=== PATIENT | female | born 1985 | race Caucasian/White ===

== ENCOUNTER 2018-04-08 08:07 | Emergency (ER) | payer SELFPAY ==
[2018-04-08] MEDS ORDERED: NA CHLORIDE 0.9% 1,000 ML ONE (09:20)
[2018-04-08] MEDS ORDERED: KETOROLAC 30 MG/ML INJ ONE (09:20)
[2018-04-08] MEDS ORDERED: DEXAMETHASONE 10 MG/ML VIAL ONE (09:43)
--- NOTE | 2018-04-08 09:49 | EDPHYS ---
Physician Documentation [facility] Name: Trinh Garcia Age: 32 yrs Sex: Female : 1985 Arrival Date: 04/08/2018 Time: 08:11 Bed 19 Private MD: None, None ED Physician Daniel Martinez HPI: 04/08 08:49 This 32 yrs old Female presents to ER via Ambulatory with complaints of Flu jr8 Symptoms. 08:49 Patient with 3 day history of flu like symptoms. Not getting better . Onset: The jr8 symptoms/episode began/occurred acutely, 3 day(s) ago. Severity of symptoms: At their worst the symptoms were moderate in the emergency department the symptoms are unchanged. The patient has not experienced similar symptoms in the past. The patient has not recently seen a physician. 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 - Social history:: Smoking status: Patient uses tobacco products, smokes one-half pack cigarettes per day. - Ebola Screening: : Patient negative for fever greater than or equal to 101.5 degrees Fahrenheit, and additional compatible Ebola Virus Disease symptoms Patient denies exposure to infectious person Patient denies travel to an Ebola-affected area in the 21 days before illness onset No symptoms or risks identified at this time. ROS: 08:49 Eyes: Negative for injury, pain, redness, and discharge, Neck: Negative for injury, jr8 pain, and swelling, Cardiovascular: Negative for chest pain, palpitations, and edema, Abdomen/GI: Negative for abdominal pain, nausea, vomiting, diarrhea, and constipation, Back: Negative for injury and pain, MS/Extremity: Negative for injury and deformity, Skin: Negative for injury, rash, and discoloration. 08:49 Constitutional: Positive for body aches, chills, fever, malaise. 08:49 ENT: Positive for rhinorrhea, sinus congestion, sinus pain, sore throat. 08:49 Respiratory: Positive for cough, Negative for dyspnea on exertion, shortness of breath, sputum production, wheezing. 08:49 Neuro: Positive for headache, Negative for altered mental status, dizziness, gait disturbance, hearing loss, loss of consciousness, numbness, seizure activity, speech changes, syncope, near syncope, tingling, tinnitus, tremor, visual changes, weakness. Exam: 08:49 Eyes: Pupils equal round and reactive to light, extra-ocular motions intact. Lids and jr8 lashes normal. Conjunctiva and sclera are non-icteric and not injected. Cornea within normal limits. Periorbital areas with no swelling, redness, or edema. Neck: Trachea midline, no thyromegaly or masses palpated, and no cervical lymphadenopathy. Supple, full range of motion without nuchal rigidity, or vertebral point tenderness. No Meningismus. Cardiovascular: Regular rate and rhythm with a normal S1 and S2. No gallops, murmurs, or rubs. Normal PMI, no JVD. No pulse deficits. Respiratory: Lungs have equal breath sounds bilaterally, clear to auscultation and percussion. No rales, rhonchi or wheezes noted. No increased work of breathing, no retractions or nasal flaring. Abdomen/GI: Soft, non-tender, with normal bowel sounds. No distension or tympany. No guarding or rebound. No evidence of tenderness throughout. Back: No spinal tenderness. No costovertebral tenderness. Full range of motion. Skin: Warm, dry with normal turgor. Normal color with no rashes, no lesions, and no evidence of cellulitis. MS/ Extremity: Pulses equal, no cyanosis. Neurovascular intact. Full, normal range of motion. Neuro: Awake and alert, GCS 15, oriented to person, place, time, and situation. Cranial nerves II-XII grossly intact. Motor strength 5/5 in all extremities. Sensory grossly intact. Cerebellar exam normal. Normal gait. 08:49 ENT: External ear(s): are unremarkable, Ear canal(s): are normal, clear, TM's: are normal, no evidence of bulging, no dullness, no erythema, no fluid levels, no hemotympanum, no rupture, normal bony landmarks, normal mobility, Nose: External nose: no obvious acute abnormality, Nasal septum: is midline, Nasal mucosa: erythematous, moist, Turbinates: are swollen bilaterally, Mouth: Lips: dry, Oral mucosa: dry, noted to have obvious stomatitis, Gums: normal with healthy appearance, Tongue: is normal, Posterior pharynx: Airway: patent, Tonsils: are normal in appearance, Uvula: midline, swelling, is not appreciated, erythema, that is mild. Vital Signs: 08:23 BP 85 / 64; Pulse 92; Resp 18; Temp 98.9; Pulse Ox 98% ; Weight 57.15 kg; Height 5 ft. bp 4 in. (162.56 cm); 09:42 BP 106 / 74; Pulse 70; Resp 14; Pulse Ox 99% ; bp 08:23 Body Mass Index 21.63 (57.15 kg, 162.56 cm) bp MDM: 08:15 Patient medically screened. quynh 09:48 Data reviewed: vital signs, nurses notes, lab test result(s), Flu: negative and as a jr8 result, I will discharge patient. Data interpreted: Pulse oximetry: on room air is 99 %. Interpretation: normal. Counseling: I had a detailed discussion with the patient and/or guardian regarding: the historical points, exam findings, and any diagnostic results supporting the discharge/admit diagnosis, lab results, the need for outpatient follow up, a family practitioner, to return to the emergency department if symptoms worsen or persist or if there are any questions or concerns that arise at home. Response to treatment: the patient's symptoms have markedly improved after treatment, patient is well hydrated. 04/08 08:21 Order name: Flu; Complete Time: 09:09 bp 04/08 08:25 Order name: Strep; Complete Time: 09:09 bp 04/08 08:57 Order name: Throat Culture EDMS Administered Medications: 08:50 Drug: NS 0.9% 1000 ml Route: IV; Rate: 1000 ml; Site: right antecubital; bp 10:19 Follow up: IV Status: Completed infusion; IV Intake: 1000ml bp 08:50 Drug: TORadol 30 mg Route: IVP; Site: right antecubital; bp 09:41 Follow up: Response: Pain is decreased bp 09:35 Drug: Decadron - Dexamethasone 10 mg Route: IVP; Site: right antecubital; bp 10:18 Follow up: Response: Marked relief of symptoms bp Disposition: 12:52 Co-signature as Attending Physician, Daniel Martinez MD I agree with the assessment and [facility] plan of care. Disposition: 04/08/18 09:49 Discharged to Home. Impression: Stomatitis and related lesions, Viral infection, unspecified. - Condition is Stable. - Discharge Instructions: Viral Respiratory Infection, Stomatitis. - Prescriptions for Prednisone 20 mg Oral Tablet - take 1 tablet by ORAL route once daily for 5 days; 5 tablet. Tessalon Perles 100 mg Oral Capsule - take 1 capsule by ORAL route every 8 hours As needed; 15 capsule. Guaifenesin AC 10- 100 mg/5 mL Oral Liquid - take 10 milliliter by ORAL route every 4 hours As needed; 240 milliliter. - Medication Reconciliation Form, Thank You Letter, Antibiotic Education, Prescription Opioid Use form. - Follow up: Private Physician; When: 2 - 3 days; Reason: Recheck today's complaints, Continuance of care, Re-evaluation by your physician. - Problem is new. - Symptoms have improved. Signatures: Dispatcher [employer] [facility] Daniel Martinez MD MD cha Roszak, Josh, PA PA jr8 Rajesh Merrill, RN RN bp Corrections: (The following items were deleted from the chart) 10:20 09:49 04/08/2018 09:49 Discharged to Home. Impression: Stomatitis and related lesions; bp Viral infection, unspecified. Condition is Stable. Forms are Medication Reconciliation Form, Thank You Letter, Antibiotic Education, Prescription Opioid Use. Follow up: Private Physician; When: 2 - 3 days; Reason: Recheck today's complaints, Continuance of care, Re-evaluation by your physician. Problem is new. Symptoms have improved. jr8
--- NOTE | 2018-04-08 09:49 | ER ---
Nurse's Notes [facility] Name: Trinh Garcia Age: 32 yrs Sex: Female : 1985 Arrival Date: 04/08/2018 Time: 08:11 Bed 19 Private MD: None, None Diagnosis: Stomatitis and related lesions;Viral infection, unspecified Presentation: 04/08 08:21 Presenting complaint: Patient states: COUGH AND MYALGIA x3 DAYS. Transition of care: bp patient was not received from another setting of care. Onset of symptoms was April 05, 2018. Risk Assessment: Do you want to hurt yourself or someone else? Patient reports no desire to harm self or others. Initial Sepsis Screen: Does the patient meet any 2 criteria? No. Patient's initial sepsis screen is negative. Does the patient have a suspected source of infection? No. Patient's initial sepsis screen is negative. Care prior to arrival: None. 08:21 Method Of Arrival: Ambulatory bp 08:21 Acuity: YECENIA 4 bp Triage Assessment: 08:23 General: Appears in no apparent distress. uncomfortable, slender, Behavior is calm, bp cooperative, appropriate for age. Pain: Complains of pain in THROAT. EENT: Reports nasal congestion pain in THROAT. Neuro: Level of Consciousness is awake, alert, obeys commands, Oriented to person, place, time, situation, Appropriate for age. Cardiovascular: No deficits noted. Respiratory: Airway is patent Respiratory effort is even, unlabored, Respiratory pattern is regular, symmetrical. GI: No signs and/or symptoms were reported involving the gastrointestinal system. : No signs and/or symptoms were reported regarding the genitourinary system. Derm: No deficits noted. Musculoskeletal: Circulation, motion, and sensation intact. Range of motion: intact in all extremities. 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 - Social history:: Smoking status: Patient uses tobacco products, smokes one-half pack cigarettes per day. - Ebola Screening: : Patient negative for fever greater than or equal to 101.5 degrees Fahrenheit, and additional compatible Ebola Virus Disease symptoms Patient denies exposure to infectious person Patient denies travel to an Ebola-affected area in the 21 days before illness onset No symptoms or risks identified at this time. Screenin:27 Abuse screen: Denies threats or abuse. Denies injuries from another. Nutritional bp screening: No deficits noted. Tuberculosis screening: No symptoms or risk factors identified. Fall Risk None identified. Assessment: 08:26 General: SEE TRIAGE NOTE. bp 09:42 Reassessment: ALL CURRENT ORDERS COMPLETED, TBDC AFTER IVF. bp 10:18 Reassessment: PT D/C HOME AMBULATORY WITH FAMILY, DX WITH VIRAL STOMATITIS. bp Vital Signs: 08:23 BP 85 / 64; Pulse 92; Resp 18; Temp 98.9; Pulse Ox 98% ; Weight 57.15 kg; Height 5 ft. bp 4 in. (162.56 cm); 09:42 BP 106 / 74; Pulse 70; Resp 14; Pulse Ox 99% ; bp 08:23 Body Mass Index 21.63 (57.15 kg, 162.56 cm) bp ED Course: 08:11 Patient arrived in ED. mr 08:12 None, None is Private Physician. mr 08:12 Daniel Martinez MD is Attending Physician. quynh 08:15 Rajesh Merrill, KIMBERLY is Primary Nurse. bp 08:22 Triage completed. bp 08:23 Arm band placed on. bp 08:27 Patient has correct armband on for positive identification. Bed in low position. Call bp light in reach. Side rails up X2. 08:32 Shiva Tenorio PA is [facility]. jr8 08:55 Initial lab(s) drawn, by me, held in ED. Inserted saline lock: 20 gauge in right mh5 antecubital area, using aseptic technique. Blood collected. 08:56 Warm blanket given. Pulse ox on. NIBP on. 5 08:56 Flu and/or RSV swab sent to lab. Strep swab sent to lab. mh5 08:57 Flu Sent. mh5 09:30 Throat Culture Sent. bp 10:18 No provider procedures requiring assistance completed. IV discontinued, intact, bp bleeding controlled, No redness/swelling at site. Pressure dressing applied. Administered Medications: 08:50 Drug: NS 0.9% 1000 ml Route: IV; Rate: 1000 ml; Site: right antecubital; bp 10:19 Follow up: IV Status: Completed infusion; IV Intake: 1000ml bp 08:50 Drug: TORadol 30 mg Route: IVP; Site: right antecubital; bp 09:41 Follow up: Response: Pain is decreased bp 09:35 Drug: Decadron - Dexamethasone 10 mg Route: IVP; Site: right antecubital; bp 10:18 Follow up: Response: Marked relief of symptoms bp Intake: 10:19 IV: 1000ml; Total: 1000ml. bp Outcome: 09:49 Discharge ordered by MD. forman 10:19 Discharged to home ambulatory, with family. bp 10:19 Condition: stable 10:19 Discharge instructions given to patient, Instructed on discharge instructions, follow up and referral plans. medication usage, Demonstrated understanding of instructions, follow-up care, medications, Prescriptions given X 3. 10:20 Patient left the ED. bp Signatures: Daniel Martinez MD MD cha Rivera, Mary mr Roszak, Josh, PA PA jr8 Martinez, Maria Rajesh Parisi, RN RN bp
== END 2018-04-08 10:20 | disposition home or self-care (01) ==
LOC: ER 08:07
DX: B34.9 Viral infection, unspecified (principal); K12.1 Other forms of stomatitis; F41.9 Anxiety disorder, unspecified; F17.210 Nicotine dependence, cigarettes, uncomplicated
CPT/HCPCS: 87070; 87081; 87804; 96361; 96374; 96375; 99284; J1100; J7030